=== PATIENT | female | born 2005 | race Caucasian/White ===

== ENCOUNTER 2025-07-01 05:56 | Outpatient (CLI) | payer MEDICAID ==
[2025-07-01] MEDS ORDERED: GADOTERATE MEGLUMINE 7.5 MMOL/15 ML VIAL IV ONE (06:34)
[2025-07-01] MEDS ORDERED: LIDOcaine 1% 30ml preserv. free vial ONE (06:34)
[2025-07-01] MEDS ORDERED: LIDOcaine 1%/PF 5ML 10 MG/ML VIAL ONE (06:34)
[2025-07-01] MEDS ORDERED: iohexol 300 MG/1 ML 50ml polymer ONE (06:34)
--- NOTE | 2025-07-01 08:13 | RADIOLOGY REPORT ---
ANGIO ARTHROGRAM (A) Date: 07/01/2025 07:34 AM Clinical History: PAIN IN LEFT KNEE Comparison: None Procedure: Verbal and written informed consent were obtained from the patient for the procedure of left knee fluoroscopically guided arthrogram, after the procedure, risks, and benefits of the procedure were explained to the patient. Risks include bleeding, infection, reaction to injected medications, and damage to surrounding anatomic structures. The patient's questions were answered. The patient's most recent medical history was reviewed. A time out was performed to verify the patient's name, date of , and correct location of the procedure, prior to initiation of the procedure. The patient was placed supine on the fluoroscopic table and the area overlying the left knee was prepped and draped in the usual sterile fashion. The patient tolerated the procedure well. There were no immediate complications. Home-care instructions were reviewed with the patient prior to the patient's discharge from the fluoroscopy suite. The patient verbally affirmed understanding of these instructions. Impression: Technically successful fluoroscopically guided left knee arthrogram. The patient was transported to MRI for further imaging at the completion of the procedure. procedure by Dr. Hurtado
--- NOTE | 2025-07-01 11:35 | RADIOLOGY REPORT ---
CLINICAL HISTORY: PAIN IN LEFT KNEE COMPARISON: None TECHNIQUE: Multisequence multiplanar MR arthrogram images of the left knee were obtained after the uneventful intra-articular injection of a dilute gadolinium contrast mixture under fluoroscopic guidance. Refer to the separately dictated arthrogram injection report for details concerning the contrast injection. FINDINGS: Cruciate ligaments: ACL and PCL are intact. Extensor mechanism: Quadriceps mechanism and patellar tendon are intact. Edema in the superolateral aspect of Hoffa's fat pad, may be seen with impingement. Edema more caudally in hoffa's fat pad is likely due to the contrast injection. Collateral ligaments: Medial and lateral collateral ligaments are intact and otherwise unremarkable. Menisci: There is some T2 hyperintense signal and contrast within the anterior horn of the lateral meniscus, most likely secondary to the contrast injection rather than due to tear. Otherwise, no evidence of meniscal tear. Cartilage: No focal chondral defect or significant chondromalacia. Bones: Small focus of marrow edema at the posteromedial aspect of the medial femoral condyle, , seen on the sagittal T2 fat-sat sequence onlypossible mild contusion. Joint fluid: Adequate distention of the joint with contrast. No loose bodies or significant synovitis. Other: No other significant findings. IMPRESSION: 1. Edema in the superolateral aspect of Hoffa's fat pad, may be seen with impingement. 2. Possible mild contusion at the posteromedial aspect of the medial femoral condyle. 3. Intrasubstance signal in the anterior horn of the lateral meniscus is most likely due to the contrast injection. Otherwise, no evidence of meniscal tear. 4. No focal chondral defect or significant chondromalacia.
== END 2025-07-01 23:59 | disposition home or self-care (01) ==
LOC: RAD 05:56
PROVIDERS: ATTEND Physician Assistant Surgical
DX: M25.562 Pain in left knee (principal); F17.200 Nicotine dependence, unspecified, uncomplicated; Z79.1 Long term (current) use of non-steroidal anti-inflammatories (NSAID); Z79.899 Other long term (current) drug therapy
CPT/HCPCS: 27369; 73722; 77002; A9575; J2003; J3490; Q9967